=== PATIENT | female | born 1990 | race Two or more races ===

== ENCOUNTER 2017-08-26 17:37 | Emergency (ER) | payer BC ==
[~2017-08-26] VITALS: Ht 162.6 cm; Wt 59.0 kg
[2017-08-26 17:45] VITALS: BP 102/68
[2017-08-26] MEDS ORDERED: Acetaminophen 500mg (ES) tab ORAL ONE (18:15)
--- NOTE | 2017-08-26 18:22 | Emergency Room Report ---
History of Present Illness General Chief Complaint: General Complaint Source: Patient Present Illness HPI 27 yo female patient presents to ER complaining of spilling chemicals on her ankles 1 day ago. 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 Patient reports shower and washing her legs profusely following arrival at home. Patient reports swelling and redness of skin. Patient reports able to ambulate independently without problem. Reports no pain or TTP, no burning or numbness, no itchiness. Patient denies chest pain, SOB, fever, vomiting. Allergies: Coded Allergies: No Known Allergies (Unverified , 08/26/17) Patient History Past Medical History: see triage record Last Menstrual Period: 07/27/2017 Now: No Reviewed Nursing Documentation: PMH: Agreed, PSxH: Agreed Nursing Documentation-PMH Past Medical History: No Stated History Review of Systems All Other Systems: negative except mentioned in HPI Physical Exam Vital Signs Date Time Temp Pulse Resp B/P (MAP) Pulse Ox O2 Delivery O2 Flow Rate FiO2 08/26/17 17:45 16 102/68 97 Room Air 08/26/17 17:45 98.3 55 98.2 Sp02 EP Interpretation: reviewed, normal General Appearance: well appearing, no apparent distress, alert, GCS 15 Head: normocephalic, atraumatic Eyes: bilateral eye normal inspection, bilateral eye PERRL ENT: hearing grossly normal, normal pharynx, no angioedema, normal voice, uvula midline, moist mucus membranes Neck: full range of motion Respiratory: lungs clear, normal breath sounds, no rhonchi, no respiratory distress, no accessory muscle use, no wheezing, speaking full sentences Cardiovascular #1: regular rate, rhythm, no edema Gastrointestinal: non tender, soft, no mass, non-distended, no guarding, no rebound Genitourinary: no CVA tenderness Musculoskeletal: back normal, digits/nails normal, gait/station normal, normal range of motion, non-tender Neurologic: alert, oriented x3, responsive, motor strength/tone normal, sensory intact Psychiatric: mood/affect normal Skin: rash - bilateral ankles: erythema, mild edema; diffuse and sparse erythematous patches of skin on lower legs bilaterally; blanches with pressure, no TTP, no open wounds, no drainage, other - no ecchymosis, no abrasions, no lacerations Lymphatic: no adenopathy Medical Decision Making PA Attestation Dr. Chino is my supervising Physician whom patient management has been discussed with. Diagnostic Impression: Primary Impression: Rash and nonspecific skin eruption ER Course Pt. presents to the ED c/o rash. Ddx considered but are not limited to atopic dermatitis, allergic reaction, chemical exposure. Vital signs: are WNL, pt. is afebrile Ordered medication for pain and inflammation. ER COURSE: Instructed patient to continue to wash legs with copious amounts of water. Wash clothes warm at time of accident prior to wearing them again. Informed patient that bleach may cause skin discoloration, instructed patient to avoid sun exposure to affected areas to avoid hyperpigmentation of surrounding tissues. Patient reports understanding and agreement to treatment plan. DISCHARGE: At this time pt. is stable for d/c to home. Patient resting comfortably, in no acute distress, nontoxic appearing, texting on phone. Will provide printed patient care instructions, and any necessary prescriptions. -Rx given for Tylenol for inflammation and pain symptoms; denies pain currently. -Rx given for Hydrocortisone Aloe cream, use sparingly Care plan and follow up instructions have been discussed with the patient prior to discharge. Patient provided with list of healthcare clinics to establish primary care physician. Patient instructed to follow-up with primary care provider in 3 - 5 days. Patient questions asked and answered. ER precautions given. Patient instructed to return to ER immediately for any new or worsening of symptoms including but not limited to increasing SOB, persistent fever. Last Vital Signs Date Time Temp Pulse Resp B/P (MAP) Pulse Ox O2 Delivery O2 Flow Rate FiO2 08/26/17 17:45 98.3 55 16 102/68 97 Room Air 98.2 Disposition: HOME, SELF-CARE Condition: Stable Scripts Hydrocortisone/Aloe Vera 1%* (HYDROCORTISONE-ALOE 1% CREAM*) Y Cr 1 APPLIC TOPIC Q6H Y for Itching, #30 GM Prov: Timbo Sanderson 08/26/17 Acetaminophen* (TYLENOL EXTRA STRENGTH*) 500 Mg Tablet 500 MG ORAL Q8H Y for Prn Headache/Temp > 101, #30 TAB 0 Refills Prov: Timbo Sanderson 08/26/17 Patient Instructions: Chemical Burn, [id number] Additional Instructions: Followup with primary care provider in 3 -5 days. Wash legs thoroughly, clean pants, do not wear same pants again. Take medications as directed. Patient questions asked and answered. ER precautions given, patient instructed to return to ER immediately for any new or worsening of symptoms. Timbo Sanderson Aug 26, 2017 18:22
[2017-08-26] MEDS ORDERED: HYDROCORTISONE-30 GM TOPIC (18:40)
[2017-08-26] MEDS ORDERED: TYLENOL EXTRA500 MG ORAL (18:40)
[2017-08-26 19:23] VITALS: BP 102/68
== END 2017-08-26 19:23 | disposition home or self-care (01) ==
LOC: EMR 18:41
DX: R21 Rash and other nonspecific skin eruption (principal)
CPT/HCPCS: 99283; J8540

== ENCOUNTER 2017-11-05 12:50 | Emergency (ER) | payer SELFPAY ==
[~2017-11-05] VITALS: Ht 172.7 cm; Wt 59.0 kg
[~2017-11-05 12:50] MED LIST: HYDROCORTISONE-30 GM TOPIC; TYLENOL EXTRA500 MG ORAL
[2017-11-05 13:06] VITALS: BP 108/64
[2017-11-05 13:21] LABS: APPEARANCE,URINE TURBID; BILIRUBIN, URINE NEGATIVE (NEGATIVE); COLOR,URINE RED; GLUCOSE, URINE (UA) NEGATIVE (NEGATIVE); KETONES,URINE 1+ (NEGATIVE); LEUKOCYTE ESTERASE ,URINE 3+ (NEGATIVE); NITRITE,URINE NEGATIVE (NEGATIVE); PH,URINE 8 (4.5-8.0); PROTEIN,URINE 4+ (NEGATIVE); UROBILINOGEN,URINE NORMAL MG/DL (0.0-1.0)
[2017-11-05] MEDS ORDERED: Phenazopyridine 200mg tab ORAL ONE (13:30)
--- NOTE | 2017-11-05 13:37 | Emergency Room Report ---
History of Present Illness General Chief Complaint: Female Urogenital Problems Source: Patient Present Illness HPI 27-year-old female presents to the emergency department complaining of urinary frequency with 10 out of 10 in severity dysuria. Patient states her symptoms have been going on for approximately 2-3 days she reports she frequently gets UTIs. She denies fevers, chills, low back pain, or history of diabetes. Patient denies genital rashes or lesions she denies vaginal discharge. She denies abdominal pain or tenderness. Denies flank pain. She reports that her bladder does feel very full and that when she goes to the bathroom only a small amount comes out. She reports some hematuria today. Allergies: Coded Allergies: No Known Allergies (Unverified , 08/26/17) Patient History Past Medical History: see triage record Past Surgical History: none Pertinent Family History: none Reviewed Nursing Documentation: PMH: Agreed; PSxH: Agreed Nursing Documentation-PM Past Medical History: No Stated History Review of Systems All Other Systems: negative except mentioned in HPI Physical Exam Vital Signs Date Time Temp Pulse Resp B/P (MAP) Pulse Ox O2 Delivery O2 Flow Rate FiO2 11/05/17 12:57 97.6 55 20 102/62 96 Room Air 97.5 Sp02 EP Interpretation: reviewed, normal General Appearance: no apparent distress, alert, GCS 15, non-toxic Head: normocephalic, atraumatic Eyes: bilateral eye normal inspection, bilateral eye PERRL ENT: hearing grossly normal, normal voice Neck: full range of motion Respiratory: chest non-tender, lungs clear, normal breath sounds, speaking full sentences Cardiovascular #1: regular rate, rhythm Gastrointestinal: normal bowel sounds, non tender, soft Genitourinary: normal inspection, no CVA tenderness Musculoskeletal: back normal, gait/station normal, normal range of motion, non- tender Neurologic: alert, oriented x3, responsive, motor strength/tone normal, sensory intact, speech normal, grossly normal Psychiatric: judgement/insight normal Skin: normal color, no rash, warm/dry, well hydrated Medical Decision Making PA Attestation Dr. Chauhan is my supervising Physician whom patient management has been discussed with. Diagnostic Impression: Primary Impression: Cystitis Additional Impression: Hematuria due to acute cystitis ER Course 27-year-old female presents to the emergency department complaining of urinary frequency with 10 out of 10 in severity dysuria. Patient states her symptoms have been going on for approximately 2-3 days she reports she frequently gets UTIs. She denies fevers, chills, low back pain, or history of diabetes. Patient denies genital rashes or lesions she denies vaginal discharge. She denies abdominal pain or tenderness. Denies flank pain. She reports that her bladder does feel very full and that when she goes to the bathroom only a small amount comes out. She reports some hematuria today. Ddx considered but are not limited to UTi , Pyelo, STI, Stone, Cystitis Vital signs: are WNL, pt. is afebrile H&PE are most consistent with UTI ORDERS: - UA labs are attached - RBC's and occult blood, few bacteria, urine is turbid, will treat for UTI -Negative urine . ED INTERVENTIONS: -Pyridium PO DISCHARGE: At this time pt. is stable for d/c to home. Will provide printed patient care instructions, and any necessary prescriptions. Care plan and follow up instructions have been discussed with the patient prior to discharge. Labs Test 11/05/17 13:05 Urine Color Red Urine Appearance Turbid Urine pH 8 (4.5-8.0) Urine Specific Josephine 1.010 (1.005-1.035) Urine Protein 4+ (NEGATIVE) Urine Glucose (UA) Negative (NEGATIVE) Urine Ketones 1+ (NEGATIVE) Urine Occult Blood 5+ (NEGATIVE) Urine Nitrite Negative (NEGATIVE) Urine Bilirubin Negative (NEGATIVE) Urine Urobilinogen Normal MG/DL (0.0-1.0) Urine Leukocyte Esterase 3+ (NEGATIVE) Urine RBC Tntc /HPF (0 - 2) Urine WBC Tntc /HPF (0 - 2) Urine Squamous Epithelial Cells Few /LPF (NONE/OCC) Urine Bacteria Few /HPF (NONE) Urine HCG, Qualitative Negative (NEGATIVE) Last Vital Signs Date Time Temp Pulse Resp B/P (MAP) Pulse Ox O2 Delivery O2 Flow Rate FiO2 11/05/17 12:57 97.6 55 20 102/62 96 Room Air 97.5 Disposition: HOME, SELF-CARE Condition: Stable Scripts Cranberry Conc/Ascorbic Acid (CRANBERRY CONCENTRATE SOFTGEL) 1 Each Capsule 1 EACH PO DAILY, #30 CAP Prov: Nori Rivera P.Arnaldo 11/05/17 Phenazopyridine Hcl* (PYRIDIUM*) 200 Mg Tablet 200 MG ORAL THREE TIMES A DAY for 3 Days, #9 TAB 0 Refills Prov: Nori Rivera 11/05/17 Nitrofurantoin Monohyd/M-Cryst* (MACROBID 100 MG*) 100 Mg Capsule 100 MG ORAL EVERY 12 HOURS for 7 Days, #14 CAP Prov: Nori Rivera 11/05/17 Referrals: NOT CHOSEN IPA/MD,REFERRING (PCP) Patient Instructions: Urinary Tract Infection Additional Instructions: Take medications as directed. Pyridium will cause your urine to change color (Red/[place]), this is a normal side effect of the medication. Follow up with a Primary Care Provider in 3-5 days, even if your symptoms have resolved. --Please review list of primary care clinics, if you do not already have a primary care provider Return sooner to ED if new symptoms occur, or current symptoms become worse. - Please note that this Emergency Department Report was dictated using [employer] supervisor technology software, occasionally this can lead to erroneous entry secondary to interpretation by the dictation equipment. Nori Rivera November 05, 2017 13:37
[2017-11-05] MEDS ORDERED: CRANBERRY CONC1 EAC1 PO (13:38)
[2017-11-05] MEDS ORDERED: NITROFURANTOIN100 M2 ORAL (13:38)
[2017-11-05] MEDS ORDERED: PHENAZOPYRIDIN200 MG ORAL (13:38)
[2017-11-05 14:00] VITALS: BP 112/69
== END 2017-11-05 14:03 | disposition home or self-care (01) ==
LOC: EMR 13:25
DX: N30.91 Cystitis, unspecified with hematuria (principal)
CPT/HCPCS: 81003; 81025; 87086; 99284